=== PATIENT | female | born 1960 | race Caucasian/White ===

== ENCOUNTER → 2022-12-08 | Outpatient (CLI) | payer MEDICARE, OTHER ==
[2022-12-08 10:32] VITALS: BP 114/71; PULSE 80; RESP 16; TEMP 98.2
--- NOTE | 2022-12-08 10:48 | P.GSHP ---
History of Present Illness H&P Date: 12/08/22 Chief Complaint: abnormal left breast mammogram Yeny is a 62 -year-old white female seen in consultation for Dr. Baxter regarding a radiographic abnormality seen in the left breast. She underwent a bilateral screening mammogram on 130 123. This revealed an area of new circumscribed mass in the central middle posterior depth of the left breast. An ultrasound was recommended. The ultrasound was performed on 10/11/2022 this revealed at the 5 o'clock position of the left breast at 1.9 cm from the nipple and area of ill-defined heterogeneous echogenicity. The area measured approximately 2.5 x 2.9 cm. Recommendation is for correlation with mammographic findings. The mammogram and ultrasound were reviewed with Dr. De Guzman and spot compression views of this area were recommended. Patient does not feel any discrete lumps masses or nodules concern in either breast. At the time the mammogram was done was reported that there was some white discharge from the left nipple complex. Has not noted any discharge prior or after the mammogram. She has never had any surgery on her breast. She is not complaining of any trauma or infection of the breast. 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 Medical History: CVA Thyrotoxicosis Hyperlipidemia Cerebral aneurysm Anxiety shizoaffective disorder Social History: smoke: none alcohol: none drugs: none - Constitutional Constitutional: Denies chills, Denies fever - EENT Eyes: bilateral blurred vision Ears: deny: decreased hearing, tinnitus Ears, nose, mouth and throat: Denies headache, Denies sore throat - Breasts Breasts: bilateral: as per HPI - Cardiovascular Cardiovascular: Denies chest pain, Denies shortness of breath - Respiratory Respiratory: Reports cough - Gastrointestinal Gastrointestinal: Reports constipation, Denies abdominal pain, Denies diarrhea, Denies nausea, Denies vomiting - Genitourinary (Female) Genitourinary: Reports kidney stones - Menstruation Menstruation: Reports postmenopausal - Musculoskeletal Musculoskeletal: Denies myalgias - Integumentary Integumentary: Denies pruritus, Denies rash - Neurological Neurological: Reports as per HPI, Denies numbness, Denies weakness - Psychiatric Psychiatric: Reports as per HPI, Reports anxiety - Endocrine Endocrine: Reports as per HPI - Hematologic/Lymphatic Comment: blood clots in her leg, varicose veins, not on blood thinners - Allergic/Immunologic Allergic/Immunologic: Reports as per HPI Surgical - Exam - General no distress - Eyes normal ocular movement - Neck trachea midline - Respiratory normal respiratory effort, clear to auscultation - Cardiovascular Rhythm: regular Heart Sounds: normal: S1, S2 - Abdomen Abdomen: soft, non tender, no guarding, no rigid, no rebound - Integumentary normal turgor - Neurologic no disoriented, no combative - Musculoskeletal normal gait - Psychiatric oriented to time, oriented to person, oriented to place, speech is normal, memory intact Breast Exam: BRA: 36B Inspection: Bilateral grade 3 ptosis Palpation: Right breast: Multi-positional exam fibrocystic changes approximately a 2 cm area of soft tissue fullness in the lower inner aspect of the breast most likely consistent with a lipoma Right axilla: No adenopathy of concern Left breast: Multi-positional exam fibrocystic changes, dense breasts no dominant masses or nodules of concern Left axilla: No adenopathy of concern Results Mammogram and ultrasound reviewed with Dr. De Guzman, he has recommended spot compression views of the area of concern in the left breast Assessment and Plan Assessment: Impression: Palpable mass right breast lower inner aspect most likely lipoma Abnormal left breast mammogram CVA Thyrotoxicosis Hyperlipidemia Cerebral aneurysm Anxiety shizoaffective disorder Plan: FNA area of concern right breast Additional mammographic views of the area of concern in the left breast If nothing is seen on the additional views of the left breast then repeat left breast mammogram in 6 months will be recommended I have discussed with her caregiver the possibility of doing an FNA today, we are planning to do this today CC: Dr. Warner
--- NOTE | 2022-12-08 11:06 | P.PN ---
Progress Note - Text Progress Note Date: 12/08/22 The palpable area of concern in the right breast was prepped using alcohol. A 22-gauge needle on a 10 mL syringe was inserted into the area and multiple passes were obtained to obtain an FNA specimen. The specimen was sent to pathology. The patient tolerated the procedure without difficulty. This was done after informed consent had been obtained. The patient will be scheduled next week for follow-up evaluation to review the results. If this is consistent with a lipoma we will follow the area conservatively.
--- NOTE | 2022-12-08 11:09 | MM ---
Reason for Exam: Additional evaluation requested from prior study. Patient History: Menarche at age 16. Patient has no children. Postmenopausal. Risk Values: Reyna 5 year model risk: 1.5%. NCI Lifetime model risk: 7.2%. Tissue Density: Left: The breast tissue is heterogeneously dense. This may lower the sensitivity of mammography. Findings: Analyzed By CAD. 3 mm circumscribed nodularity 12:00, middle depth. On the lateral view, a reniform shape is suggested. The area may represent a small intramammary lymph node that can be reassessed in 6 months. No abnormality seen in the 5:00 position to correspond to the ultrasound finding. Dense tissue is suspected. No suspicious microcalcification or other discrete abnormality is seen. Overall Assessment: Probably benign, BI-RAD 3 Management: Diagnostic Mammogram of the left breast in 6 months. Diagnostic Breast Ultrasound of the left breast in 6 months. 1. Patient should continue monthly self breast exams. 2. A clinical breast exam by your physician is recommended on an annual basis. 3. This exam should not preclude additional follow-up of suspicious palpable abnormalities. Results were given to the patient verbally at the time of exam. Electronically signed and approved by: Leatha De Guzman M.D. Radiologist
== END ==
LOC: WWCWWP 09:57
PROVIDERS: ATTEND Surgery
DX: R92.8 Other abnormal and inconclusive findings on diagnostic imaging of breast (principal); Z85.3 Personal history of malignant neoplasm of breast; E05.90 Thyrotoxicosis, unspecified without thyrotoxic crisis or storm; E78.5 Hyperlipidemia, unspecified; F41.9 Anxiety disorder, unspecified; I67.1 Cerebral aneurysm, nonruptured; N63.14 Unspecified lump in the right breast, lower inner quadrant; N64.52 Nipple discharge; Z78.0 Asymptomatic menopausal state; Z80.3 Family history of malignant neoplasm of breast; Z86.73 Personal history of transient ischemic attack (TIA), and cerebral infarction without residual deficits
CPT/HCPCS: 77065; G0279; 77061